=== PATIENT | female | born 1980 | race Caucasian/White ===

== ENCOUNTER → 2019-07-08 | Outpatient (CLI) | payer BC ==
--- NOTE | 2019-07-09 07:43 | US ---
EXAMINATION TYPE: US pelvic complete DATE OF EXAM: 07/08/2019 COMPARISON: NONE CLINICAL HISTORY: 38-year-old female N93.8 abnormal uterine bleeding. Abnormal bleeding. TECHNIQUE: Transabdominal sonographic images of the pelvis were acquired. FINDINGS: EXAM MEASUREMENTS: Uterus: 9.8 x 3.6 x 6.1 cm Endometrial Stripe: .6 cm Right Ovary: 2.9 x 2.0 x 1.4 cm Left Ovary: 3.7 x 1.9 x 2.5 cm 1. Uterus: Anteverted wnl 2. Endometrium: wnl 3. Right Ovary: Follicles seen. 4. Left Ovary: Anechoic area 2.4 x 1.0 x 1.4 cm. 5. Bilateral Adnexa: wnl 6. Posterior cul-de-sac: wnl IMPRESSION: 1. Transabdominal scanning. Endometrial stripe measuring 6 mm. 2. A 2.4 cm dominant follicle or functional cyst in the left ovary.
== END | disposition home or self-care (01) ==
LOC: RADUSWWP 13:31
PROVIDERS: ATTEND Family Medicine
DX: N39.0 Urinary tract infection, site not specified (principal)
CPT/HCPCS: 76856